=== PATIENT | male | born 1940 | race Caucasian/White ===

== ENCOUNTER 2020-04-15 12:12 | Inpatient (IN) | payer MEDICARE ==
[2020-04-15] MEDS ORDERED: Bisacodyl 5 MG TAB PO PRN (15:34)
[2020-04-15] MEDS ORDERED: Ondansetron PF 4 MG/2 ML Vial IVP PRN (15:34)
[2020-04-15] MEDS ORDERED: Guaifenesin DM 100-10/5 ML UDCUP PO PRN (15:34)
[2020-04-15] MEDS ORDERED: Bisacodyl 10 MG SUPP PR PRN (15:34)
[2020-04-15] MEDS ORDERED: Acetaminophen 325 MG TAB PO PRN (15:34)
[2020-04-15] MEDS ORDERED: Senokot S 8.6-50 MG TAB PO PRN (15:34)
[2020-04-15 15:48] VITALS: BMI 33.0
[2020-04-15 16:47] LABS: #Eosinphils 0.2 10x3/uL (0.0-0.5); #Monocytes 0.9 10x3/uL (0.0-1.1); #Neutrophils 5.7 10x3/uL (1.5-8.4); %Basophils 0.5 % (0.0-2.0); %Eosinophils 2.2 % (0.0-6.0); %Lymphocytes 8.7 % (18.0-47.0); %Neutrophils 75.9 % (40.0-75.0); Hemoglobin 7.6 g/dL (13.5-17.5); Mean Corpuscular HGB CONC 30.6 g/dL (32.0-36.0); Mean Platelet Volume 10.6 fl (7.4-10.4); Platelet Count 174 10x3/uL (150-450); RBC Distribution Width 18.2 % (11.5-14.5); Red Blood Cell (RBC) Count 2.53 10x6/uL (4.32-5.72); White Blood Cell (WBC) Count 7.6 10x3/uL (3.5-10.5)
[2020-04-15 16:53] LABS: INR-International Normal Ratio 1.1; Prothrombin Time 11.2 sec (9.5-12.1)
[2020-04-15 16:57] LABS: ALT (SGPT) Less than 6 U/L (8-55); AST (SGOT) 13 U/L (5-34); Albumin 2.8 g/dL (3.4-4.8); Alkaline Phosphatase 73 U/L (40-110); Anion Gap 11 mmol/L (10-20); BUN (Urea Nitrogen) 36 mg/dL (8.4-25.7); Bilirubin, Total 0.4 mg/dL (0.2-1.2); Calc. Creatinine Clearance 41 mL/min (70-130); Calcium 8.1 mg/dL (7.8-10.44); Carbon Dioxide 26 mmol/L (23-31); Chloride 108 mmol/L (98-107); Globulin 3.1 g/dL (2.4-3.5); Glucose 135 mg/dL (83-110); Potassium 4.6 mmol/L (3.5-5.1); Protein, Total 5.9 g/dL (5.8-8.1); Sodium 140 mmol/L (136-145)
[2020-04-15] MEDS ORDERED: traMADol HCl 50 MG TAB PO PRN (19:28)
[2020-04-15] MEDS ORDERED: Apixaban 2.5 MG TAB PO SCH (21:00)
[2020-04-15] MEDS ORDERED: Apixaban 5 MG TAB PO SCH (21:00)
[2020-04-15] MEDS: Gabapentin 300 MG CAP PO SCH (21:39)
[2020-04-15] MEDS: Enoxaparin Sodium 100 MG/ML SYRINGE SC SCH (21:39)
[2020-04-16 08:23] LABS: #Eosinphils 0.3 10x3/uL (0.0-0.5); #Neutrophils 5.7 10x3/uL (1.5-8.4); %Basophils 0.5 % (0.0-2.0); %Eosinophils 3.4 % (0.0-6.0); %Lymphocytes 10.3 % (18.0-47.0); %Monocytes 12.6 % (0.0-10.0); %Neutrophils 72.7 % (40.0-75.0); Hemoglobin 7.9 g/dL (13.5-17.5); Mean Corpuscular HGB CONC 30.7 g/dL (32.0-36.0); Mean Corpuscular Hemoglobin 29.6 pg (27.0-33.0); Mean Corpuscular Volume 96.3 fl (81.2-95.1); Mean Platelet Volume 10.3 fl (7.4-10.4); Platelet Count 176 10x3/uL (150-450); RBC Distribution Width 18.2 % (11.5-14.5); Red Blood Cell (RBC) Count 2.67 10x6/uL (4.32-5.72); White Blood Cell (WBC) Count 7.8 10x3/uL (3.5-10.5)
[2020-04-16] MEDS: Gabapentin 300 MG CAP PO SCH ×2 (08:57→21:00)
[2020-04-16] MEDS: Enoxaparin Sodium 100 MG/ML SYRINGE SC SCH (08:57)
[2020-04-16] MEDS: Amlodipine 5 MG TAB PO SCH (08:58)
[2020-04-16 09:04] LABS: Anion Gap 13 mmol/L (10-20); BUN (Urea Nitrogen) 37 mg/dL (8.4-25.7); Calc. Creatinine Clearance 44 mL/min (70-130); Carbon Dioxide 21 mmol/L (23-31); Chloride 111 mmol/L (98-107); Glucose 89 mg/dL (83-110); Potassium 4.4 mmol/L (3.5-5.1); Sodium 141 mmol/L (136-145)
[2020-04-16] MEDS: Sodium Chloride 0.9% 1,000 ML IV SCH ×2 (16:30→16:31)
[2020-04-17] MEDS: Sodium Chloride 0.9% 1,000 ML IV SCH ×4 (01:20→21:55)
[2020-04-17] MEDS ORDERED: Acetylcysteine 20% 200 MG/ML 30 ML VIAL PO SCH (05:00)
[2020-04-17 05:02] LABS: Prothrombin Time 10.9 sec (9.5-12.1)
[2020-04-17 05:05] LABS: Anion Gap 12 mmol/L (10-20); BUN (Urea Nitrogen) 36 mg/dL (8.4-25.7); Calc. Creatinine Clearance 47 mL/min (70-130); Calcium 7.7 mg/dL (7.8-10.44); Carbon Dioxide 22 mmol/L (23-31); Chloride 109 mmol/L (98-107); Glucose 94 mg/dL (83-110); Potassium 3.8 mmol/L (3.5-5.1); Sodium 139 mmol/L (136-145)
[2020-04-17 05:18] LABS: #Basophils 0.1 10x3/uL (0.0-0.2); #Eosinphils 0.2 10x3/uL (0.0-0.5); #Monocytes 0.8 10x3/uL (0.0-1.1); %Basophils 0.9 % (0.0-2.0); %Eosinophils 3.2 % (0.0-6.0); %Lymphocytes 11.3 % (18.0-47.0); %Monocytes 11.5 % (0.0-10.0); %Neutrophils 72.4 % (40.0-75.0); Hemoglobin 7.9 g/dL (13.5-17.5); Mean Corpuscular HGB CONC 30.6 g/dL (32.0-36.0); Mean Corpuscular Hemoglobin 29.6 pg (27.0-33.0); Mean Corpuscular Volume 96.6 fl (81.2-95.1); Mean Platelet Volume 10.6 fl (7.4-10.4); Platelet Count 175 10x3/uL (150-450); RBC Distribution Width 17.9 % (11.5-14.5); Red Blood Cell (RBC) Count 2.67 10x6/uL (4.32-5.72); White Blood Cell (WBC) Count 6.8 10x3/uL (3.5-10.5)
[2020-04-17 06:02] LABS: SARS-CoV-2 NAA Rapid Test Not Detected (NotDetected)
[2020-04-17] MEDS: Amlodipine 5 MG TAB PO SCH (06:35)
[2020-04-17] MEDS ORDERED: Nitroglycerin 50 MG/250 ML BOT 0 ML ONE (07:14)
[2020-04-17] MEDS ORDERED: Adenosine 6 MG/2 ML VIAL ONE (07:15)
[2020-04-17] MEDS ORDERED: Heparin 10,000 UNITS/ 10 ML VIAL ONE (07:15)
[2020-04-17] MEDS ORDERED: Verapamil 5 MG/2 ML VIAL ONE (07:15)
[2020-04-17] MEDS ORDERED: Sodium Chloride 0.9% 1,000 ML ONE (07:16)
[2020-04-17] MEDS ORDERED: Fentanyl 100 MCG/2 ML VIAL ONE (07:16)
[2020-04-17] MEDS ORDERED: Bivalirudin 250 MG VIAL ONE (07:16)
[2020-04-17] MEDS ORDERED: Midazolam HCl 2 mg/2 ml Vial ONE (07:16)
[2020-04-17] MEDS ORDERED: Acetylcysteine 800 MG/4 ML VIAL ONE (07:41)
[2020-04-17] MEDS ORDERED: Lidocaine 1% (PF) 30 ML VIAL ONE (08:01)
[2020-04-17] MEDS: Gabapentin 300 MG CAP PO SCH ×2 (09:00→20:24)
[2020-04-17] MEDS ORDERED: Sodium Chloride 0.9% 200 ML IV PRN (09:28)
[2020-04-17] MEDS ORDERED: Nitroglycerin 0.4 MG TAB (25 Tab Bottle) SL PRN (09:28)
[2020-04-17] MEDS ORDERED: Acetaminophen/Codeine 30-300mg Tablet PO PRN ×2 (09:28)
[2020-04-17] MEDS: Atorvastatin Calcium 40 MG TAB PO SCH (20:25)
[2020-04-18 04:51] LABS: #Basophils 0.1 10x3/uL (0.0-0.2); #Eosinphils 0.2 10x3/uL (0.0-0.5); #Monocytes 0.9 10x3/uL (0.0-1.1); #Neutrophils 4.9 10x3/uL (1.5-8.4); %Basophils 0.7 % (0.0-2.0); %Eosinophils 2.9 % (0.0-6.0); %Lymphocytes 11.5 % (18.0-47.0); %Monocytes 13.4 % (0.0-10.0); %Neutrophils 70.9 % (40.0-75.0); Mean Corpuscular HGB CONC 30.3 g/dL (32.0-36.0); Mean Corpuscular Hemoglobin 29.7 pg (27.0-33.0); Mean Corpuscular Volume 98.1 fl (81.2-95.1); Platelet Count 172 10x3/uL (150-450); RBC Distribution Width 17.8 % (11.5-14.5); Red Blood Cell (RBC) Count 2.69 10x6/uL (4.32-5.72); White Blood Cell (WBC) Count 6.9 10x3/uL (3.5-10.5)
[2020-04-18 05:04] LABS: Anion Gap 11 mmol/L (10-20); BUN (Urea Nitrogen) 27 mg/dL (8.4-25.7); Calc. Creatinine Clearance 56 mL/min (70-130); Calcium 7.5 mg/dL (7.8-10.44); Carbon Dioxide 20 mmol/L (23-31); Chloride 113 mmol/L (98-107); Glucose 82 mg/dL (83-110); Potassium 3.6 mmol/L (3.5-5.1); Sodium 140 mmol/L (136-145)
[2020-04-18] MEDS ORDERED: Gentamicin 80 MG/2 ML VIAL ONE (07:55)
[2020-04-18] MEDS ORDERED: CEFAZOLIN 1 GM VIAL ONE ×2 (07:55→08:52)
[2020-04-18] MEDS ORDERED: Midazolam HCl 2 mg/2 ml Vial ONE (07:56)
[2020-04-18] MEDS ORDERED: Fentanyl 100 MCG/2 ML VIAL ONE (07:56)
[2020-04-18] MEDS ORDERED: Sodium Chloride 0.9% 2,000 ML ONE (07:56)
[2020-04-18] MEDS ORDERED: Lidocaine 1% (PF) 30 ML VIAL ONE (08:04)
[2020-04-18] MEDS: Amlodipine 5 MG TAB PO SCH (08:35)
[2020-04-18] MEDS: Gabapentin 300 MG CAP PO SCH ×2 (08:35→20:25)
[2020-04-18] MEDS: CEFAZOLIN 2 GM in Premix Bag 1 BAG IVPB SCH ×2 (13:42→22:03)
[2020-04-18] MEDS: Atorvastatin Calcium 40 MG TAB PO SCH (20:26)
[2020-04-19] MEDS: Sodium Chloride 0.9% 1,000 ML IV SCH (00:01)
[2020-04-19 05:45] LABS: #Eosinphils 0.2 10x3/uL (0.0-0.5); #Monocytes 0.9 10x3/uL (0.0-1.1); #Neutrophils 4.8 10x3/uL (1.5-8.4); %Basophils 0.6 % (0.0-2.0); %Eosinophils 2.7 % (0.0-6.0); %Lymphocytes 10.3 % (18.0-47.0); %Monocytes 13.9 % (0.0-10.0); %Neutrophils 71.9 % (40.0-75.0); Hemoglobin 7.8 g/dL (13.5-17.5); Mean Corpuscular HGB CONC 30.5 g/dL (32.0-36.0); Mean Corpuscular Hemoglobin 29.8 pg (27.0-33.0); Mean Corpuscular Volume 97.7 fl (81.2-95.1); Mean Platelet Volume 11.1 fl (7.4-10.4); Platelet Count 164 10x3/uL (150-450); RBC Distribution Width 17.3 % (11.5-14.5); Red Blood Cell (RBC) Count 2.62 10x6/uL (4.32-5.72); White Blood Cell (WBC) Count 6.6 10x3/uL (3.5-10.5)
[2020-04-19] MEDS: CEFAZOLIN 2 GM in Premix Bag 1 BAG IVPB SCH ×3 (06:02→22:42)
[2020-04-19 06:07] LABS: Anion Gap 11 mmol/L (10-20); BUN (Urea Nitrogen) 30 mg/dL (8.4-25.7); Calc. Creatinine Clearance 52 mL/min (70-130); Calcium 7.5 mg/dL (7.8-10.44); Carbon Dioxide 20 mmol/L (23-31); Chloride 111 mmol/L (98-107); Glucose 96 mg/dL (83-110); Potassium 3.5 mmol/L (3.5-5.1); Sodium 138 mmol/L (136-145)
[2020-04-19] MEDS: Amlodipine 5 MG TAB PO SCH (08:48)
[2020-04-19] MEDS: Gabapentin 300 MG CAP PO SCH ×4 (08:48→22:53)
[2020-04-19] MEDS: Clopidogrel Bisulfate 75 MG TAB PO SCH (08:48)
[2020-04-19] MEDS: Apixaban 2.5 MG TAB PO SCH ×2 (08:48→20:31)
[2020-04-19] MEDS ORDERED: Potassium Chloride 20 MEQ TAB PO SCH (09:45)
[2020-04-19] MEDS: HYDROcodone/Acetaminophen 5/325 mg Tablet PO PRN (13:21)
[2020-04-19] MEDS: Atorvastatin Calcium 40 MG TAB PO SCH (20:31)
[2020-04-20] MEDS: CEFAZOLIN 2 GM in Premix Bag 1 BAG IVPB SCH ×2 (05:51→15:11)
[2020-04-20] MEDS: Gabapentin 300 MG CAP PO SCH ×2 (08:59→15:11)
[2020-04-20] MEDS: Amlodipine 5 MG TAB PO SCH (08:59)
[2020-04-20] MEDS: Apixaban 2.5 MG TAB PO SCH (08:59)
[2020-04-20] MEDS: Clopidogrel Bisulfate 75 MG TAB PO SCH (08:59)
[2020-04-20] MEDS: HYDROcodone/Acetaminophen 5/325 mg Tablet PO PRN (15:20)
[2020-04-20 16:20] VITALS: BP 146/59; TEMP 98.1
== END 2020-04-20 18:03 | DRG 258 ==
LOC: CSHTELE 12:12
PROVIDERS: ADMIT Internal Medicine; ATTEND Family Medicine
PROC: 30233N1 Transfusion of Nonautologous Red Blood Cells into Peripheral Vein, Percutaneous Approach (ICD-10-PCS; principal; 2020-04-15)
PROC: B4101ZZ Fluoroscopy of Abdominal Aorta using Low Osmolar Contrast (ICD-10-PCS; 2020-04-17)
PROC: B41D1ZZ Fluoroscopy of Aorta and Bilateral Lower Extremity Arteries using Low Osmolar Contrast (ICD-10-PCS; 2020-04-17)
PROC: 0JH606Z Insertion of Pacemaker, Dual Chamber into Chest Subcutaneous Tissue and Fascia, Open Approach (ICD-10-PCS; 2020-04-18)
PROC: 0JPT0PZ Removal of Cardiac Rhythm Related Device from Trunk Subcutaneous Tissue and Fascia, Open Approach (ICD-10-PCS; 2020-04-18)
PROC: 3E0102A Introduction of Anti-Infective Envelope into Subcutaneous Tissue, Open Approach (ICD-10-PCS; 2020-04-18)
DX: I73.9 Peripheral vascular disease, unspecified (principal); I50.33 Acute on chronic diastolic (congestive) heart failure; I13.0 Hypertensive heart and chronic kidney disease with heart failure and stage 1 through stage 4 chronic kidney disease, or unspecified chronic kidney disease; N17.9 Acute kidney failure, unspecified; L89.150 Pressure ulcer of sacral region, unstageable; K21.9 Gastro-esophageal reflux disease without esophagitis; I48.0 Paroxysmal atrial fibrillation; Z95.2 Presence of prosthetic heart valve; I35.0 Nonrheumatic aortic (valve) stenosis; I25.10 Atherosclerotic heart disease of native coronary artery without angina pectoris; N18.30 Chronic kidney disease, stage 3 unspecified; Z95.0 Presence of cardiac pacemaker; G62.9 Polyneuropathy, unspecified; E66.9 Obesity, unspecified; Z68.33 Body mass index [BMI] 33.0-33.9, adult; L89.629 Pressure ulcer of left heel, unspecified stage; L89.619 Pressure ulcer of right heel, unspecified stage; E78.5 Hyperlipidemia, unspecified; D64.9 Anemia, unspecified; I49.5 Sick sinus syndrome; S72.409D Unspecified fracture of lower end of unspecified femur, subsequent encounter for closed fracture with routine healing; W06.XXXD Fall from bed, subsequent encounter; N40.0 Benign prostatic hyperplasia without lower urinary tract symptoms; I71.9 Aortic aneurysm of unspecified site, without rupture; I70.8 Atherosclerosis of other arteries; I48.91 Unspecified atrial fibrillation
CPT/HCPCS: 33228; 36140; 36415; 36430; 71045; 75625; 75716; 80048; 80053; 85025; 85610; 85730; 86850; 86900; 86901; 93005; 93010; 94760; 99152; 99153; C1760; C1785; J0153; J0583; J0690; J1580; J1644; J1650; J2001; J2250; J3010; J7050; P9016; U0002